=== PATIENT | female | born 1990 | race Caucasian/White ===

== ENCOUNTER 2019-02-09 18:37 | Emergency (ER) | payer BC, MEDICAID ==
[2019-02-09] MEDS ORDERED: Acetaminophen TAB* 325 MG PO ONE (19:58)
--- NOTE | 2019-02-09 20:00 | ED ---
Upper Extremity Pain - HPI Summary HPI Summary: Pt is a 28 y/o F presenting to the ED for a chief complaint of left shoulder pain. On 02/04/19, pt had pain in the left shoulder while trying to sleep on the left side. The shoulder pain worsens when lying on the area and with deep breaths. The shoulder pain previously only occurred while lying on the area, but now is a constant pain. Pt took Tylenol with limited relief for the left shoulder pain. Pt admits CP with breathing and a cough. The CP is at the bottom of the chest, and it now radiates to the back. Pt denies fever or SOB. Pt denies injury to the area. Pt saw a chiropractor on 02/06/19 who the pt sees every Wednesday without relief of symptoms. Pt is currently 28 weeks ; this is her third . Pt denies any complications with previous pregnancies. 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 Pt denies a PMHx of FMHx of blood clots. Pt has a FHMx of HTN, pancreatic cancer, and leukemia. - History of Current Complaint Chief Complaint: EDShoulderClavicleInj Stated Complaint: CHEST PAIN / SHOULDER PAIN PER PT Time Seen by Provider: 02/09/19 19:35 Hx Obtained From: Patient Hx Last Menstrual Period: August 22 Onset/Duration: Started Days Ago, Atraumatic, Still Present Timing: Constant, Lasting Days Severity Initially: Moderate Severity Currently: Moderate Pain Location: Shoulder Aggravating Factor(s): Other - Deep breaths Alleviating Factor(s): OTC Meds - Some relief Associated Signs & Symptoms: Positive: Chest Pain - Lower with breathing, Back Pain - Radiates from chest. Negative: Fever, SOB - Allergies/Home Medications Allergies/Adverse Reactions: Allergies Allergy/AdvReac Type Severity Reaction Status Date / Time No Known Allergies Allergy Verified 02/09/19 18:42 Home Medications: Home Medications Montelukast Sodium TAB* [Singulair TAB*] 10 mg PO DAILY 02/09/19 [History Confirmed 02/09/19] Ranitidine TAB (NF) [Zantac TAB (NF)] 150 mg PO BID 02/09/19 [History Confirmed 02/09/19] PMH/Surg Hx/FS Hx/Imm Hx Previously Healthy: Yes Endocrine/Hematology History: Denies: Hx Diabetes Cardiovascular History: Denies: Hx Hypertension Sensory History: Denies: Hx Legally Blind, Hx Deafness Opthamlomology History: Denies: Hx Legally Blind EENT History: Denies: Hx Deafness - Surgical History Surgical History: Yes Surgery Procedure, Year, and Place: TONSILECTOMY 2012. GALL BLADDER REMOVAL 2010 Infectious Disease History: No Infectious Disease History: Reports: History Other Infectious Disease - mono Denies: Traveled Outside the [place] in Last 30 Days - Family History Known Family History: Negative: Other - Negative blood clots - Social History Alcohol Use: None Hx Substance Use: No Substance Use Type: Reports: None Hx Tobacco Use: No Smoking Status (MU): Never Smoked Tobacco Have You Smoked in the Last Year: No Review of Systems Negative: Fever Positive: Chest Pain - With deep breaths, radiates to back Positive: Cough. Negative: Shortness Of Breath Positive: Arthralgia - Left shoulder, Myalgia - Back pain that radiates from chest All Other Systems Reviewed And Are Negative: Yes Physical Exam - Summary Physical Exam Summary: Constitutional: Well-developed, Well-nourished, Alert. (-) Distressed Skin: Warm, Dry HENT: Normocephalic; Atraumatic Eyes: Conjunctiva normal Neck: Musculoskeletal ROM normal neck. (-) JVD, (-) Stridor, (-) Nuchal rigidity Cardio: Rhythm regular, rate normal, Heart sounds normal; Intact distal pulses; Radial pulses are 2+ and symmetric. (-) Murmur Pulmonary/Chest wall: Effort normal. (-) Respiratory distress, (-) Wheezes, (-) Rales Abd: Soft, (-) tenderness,Gravid uterus, (-) Guarding, (-) Rebound Musculoskeletal: (-) Edema. Pain with abduction of left shoulder, no tenderness of wrist, elbow, or humerus, no midline, C-spine, or thoracic tenderness. Lymph: (-) Cervical adenopathy Neuro: Alert, Oriented x3 Psych: Mood and affect Normal OB: heart tone was 147. Triage Information Reviewed: Yes Vital Signs On Initial Exam: Initial Vitals Temp Pulse Resp BP Pulse Ox 97.3 F 106 16 116/96 100 02/09/19 18:39 02/09/19 18:39 02/09/19 18:39 02/09/19 18:39 02/09/19 18:39 Vital Signs Reviewed: Yes Procedures - Sedation Patient Received Moderate/Deep Sedation with Procedure: No Diagnostics - Vital Signs Vital Signs Temp Pulse Resp BP Pulse Ox 02/09/19 19:37 104 20 123/75 99 02/09/19 19:36 111 96 02/09/19 18:39 97.3 F 106 16 116/96 100 - Laboratory Result Diagrams: 02/09/19 19:56 02/09/19 19:56 Lab Statement: Any lab studies that have been ordered have been reviewed, and results considered in the medical decision making process. - Radiology Chest X-ray Radiology Interpretation Completed By: ED Physician Summary of Radiographic Findings: Chest X-ray IMPRESSION: no acute process. Reviewed and interpreted by ED physician; pending official radiology report. - EKG 18:55 Cardiac Rate: Tachycardia - 104 BPM EKG Rhythm: Sinus Tachycardia ST Segment: Normal Ectopy: None Summary of EKG Findings: EKG at 18:55 reveals 104 BPM with sinus tachycardia, no STEMI, T-wave inversion in lead III. Reviewed and interpreted by ED physician. Re-Evaluation - Re-Evaluation 1st re-eval Re-Evaluation Time: 21:06 Change: Improved Comment: At 21:06, I updated the pt on labs and normal D-dimer. Pt is feeling slightly improved and will plan for discharge. Course/Dx - Course Course Of Treatment: 28 year old female 28 weeks presents with left- sided shoulder and chest wall pain. Chest Pain DDX: The patient is well appearing, with stable vitals. Given the patient's clinical presentation, highest on differential is MSK pain. Although less likely, differential also includes the following: --Pneumothorax: Equal breath sounds, story inconsistent since gradual onset of symptoms. CXR shows no evidence of pneumothorax. Unlikely. --Cardiac tamponade: The history and physical are not concerning for tamponade. No Pulsus Paradoxus, no tachypnea. Unlikely. -- Mediastinitis or esophageal rupture: The history is not consistent, as the patient has had no recent history of significant wretching, instrumentation, or mediastinal surgeries. Unlikely. --Aortic dissection: The patient does not describe the classical tearing chest pain radiating into the back, and the CXR does not show mediastinal widening or other signs of aortic dissection. Unlikely. --PE: Vitals wnl (not hypoxic, tachycardic or tachypneic). Wells low risk, d dimer neg. --ACS: The initial EKG shows no ischemic changes. The initial troponin is not elevated. Labs notable for leukocytosis 16 which can be seen in , patient does not have any infectious symptoms. Patient given IV fluids, Tylenol and lidocaine patch for comfort. Can take Flexeril at home. Patient to return for worsening symptoms. - Diagnoses Provider Diagnoses: Shoulder pain, Chest wall pain Discharge ED - Sign-Out/Discharge Documenting (check all that apply): Patient Departure - Discharge - Discharge Plan Condition: Stable Disposition: HOME Prescriptions: Cyclobenzaprine TAB* [Flexeril 10 MG TAB*] 10 mg PO TID PRN 4 Days #12 tab PRN Reason: Pain - Moderate Patient Education Materials: Shoulder Pain (ED), Chest Wall Pain (ED) Referrals: Julien Mars MD [Primary Care Provider] - Additional Instructions: You were seen in the emergency department for left shoulder and chest wall pain. Your labs did not show a cause for your pain. Your chest x-ray did not show any evidence of infection. Your heart tracing was normal. If any studies were not completed at the time of discharge you will be called with the relevant results. Please follow up with your primary care doctor in next 2-3 days and return to emergency department for worsening pain, trouble breathing., chest pain, fever or concerning symptoms. It was a pleasure taking care of you today. - Billing Disposition and Condition Condition: STABLE Disposition: Home - Attestation Statements Document Initiated by Kathy: Yes Documenting Scribe: Noemi Holloway Provider For Whom Kathy is Documenting (Include Credential): Thalia Cintron MD Scribe Attestation: INoemi, scribed for Thalia Cintron MD on 02/10/19 at 0145. Scribe Documentation Reviewed: Yes Provider Attestation: The documentation as recorded by the Noemi grey accurately reflects the service I personally performed and the decisions made by me, Thalia Cintron MD Status of Scribe Document: Viewed
[2019-02-09 20:12] LABS: ABS Basophils 0.1 10^3/ul (0-0.2); ABS Eosinophils 0.4 10^3/ul (0-0.6); ABS Lymphocytes 2.6 10^3/ul (1.0-4.8); ABS Monocytes 1.1 10^3/ul (0-0.8); Eosinophil % 2.4 %; Hematocrit 39 % (35-47); Lymphocyte % 16.1 %; Mean Corpuscular HGB Conc 33 g/dL (31-36); Mean Corpuscular Hemoglobin 28 pg (27-31); Mean Corpuscular Volume 84 fL (80-97); Mean Platelet Volume 7.5 fL (7.4-10.4); Platelet Count 379 10^3/uL (150-450); Red Blood Count 4.65 10^6 /uL (3.70-4.87); Red Cell Distribution Width 15 % (10-15); White Blood Count 16.1 10^3/uL (3.5-10.8)
[2019-02-09 20:23] LABS: Albumin 3.6 g/dL (3.2-5.2); Albumin/Globulin Ratio 1.2 (1-3); BUN/Creatinine Ratio 16.9 (8-20); Calcium 8.9 mg/dL (8.6-10.3); EGFR African American 130.4 (>60); EGFR Non-African American 107.8 (>60); Globulin 2.9 g/dL (2-4); Potassium 3.8 mmol/L (3.5-5.0); Total Bilirubin 0.3 mg/dL (0.2-1.0); Total Protein 6.5 g/dL (6.4-8.9)
[2019-02-09] MEDS ORDERED: NS 0.9% 1000 ML** 1,000 ML IV ONE (20:25)
[2019-02-09] MEDS ORDERED: Cyclobenzaprine TAB* 10 MG PO ONE (21:17)
[2019-02-09 21:52] VITALS: BP 114/69
[2019-02-10] MEDS ORDERED: Lidocaine Patch REMOVE* 1 NOTE MISC SCH (21:00)
[2019-02-10] MEDS ORDERED: Lidocaine PATCH 5%* 1 PATCH TRANSDERM SCH (22:00)
== END 2019-02-09 21:52 | disposition home or self-care (01) ==
LOC: ED 18:37
DX: M25.512 Pain in left shoulder (principal); R07.89 Other chest pain; R05 Cough; Z87.891 Personal history of nicotine dependence
CPT/HCPCS: 36415; 71046; 80053; 84484; 85025; 85379; 93005; 96360; 99282; A9270-GY

== ENCOUNTER 2019-02-10 08:26 | Emergency (ER) | payer BC, MEDICAID ==
[2019-02-10 10:34] VITALS: BP 116/71
[2019-02-10] MEDS ORDERED: HYDROcodone/ACETAMIN 5-325 MG* 1 TAB PO ONE (10:37)
--- NOTE | 2019-02-10 17:34 | ED ---
Upper Extremity Pain - HPI Summary HPI Summary: This patient is a 28-year-old 28 week female who presents to the ED with left sided scapular pain radiating around into the left breast. She denies any difficulty with breathing, however states when she does take a deep breath, she is endorsing worsening pain to this area. She denies any fevers, sweats, chills. She was seen earlier in the evening and a full workup for chest pain was completed. Dimer negative. Trop negative. CXR read as WNL. Pt was given flexeril and encouraged tylenol. Sxs have been present x 1 week. Sxs worse with palpation to the area and lying over the L shoulder. Better with lying to the R side. Denies SOB, but states sxs are worse with taking a deep breath. Denies CP, but does endorse a radiation of pain from the L scapula to just under the L breast. Denies abd pain. Continues to eat and drink OK. No hx of complications with previous and no hx of DVT/PE. Fam hx includes HTN. 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 Denies any bilateral leg pain or swelling. Non-smoker, no alcohol use Denies sig PMHx. - History of Current Complaint Chief Complaint: EDChestPainROMI Stated Complaint: CHEST PAIN/SHOULDER PAIN PER PT Time Seen by Provider: 02/10/19 08:30 Hx Obtained From: Patient Hx Last Menstrual Period: August 22 Onset/Duration: Started Days Ago Timing: Constant Severity Initially: Moderate Severity Currently: Moderate Pain Location: Shoulder Character: Aching Aggravating Factor(s): Movement, Lifting, Flexion, Extension, Other - deep breaths, movement, lying onto the L side Alleviating Factor(s): Nothing Associated Signs & Symptoms: Negative: Swelling, Redness, Weakness, Numbness/ Tingling Related History: Dominant Hand Right - Risk Factors Non-Orthopedic Risk Factor: Negative DVT Risk Factors: Septic Arthritis Risk Factor: Negative - Allergies/Home Medications Allergies/Adverse Reactions: Allergies Allergy/AdvReac Type Severity Reaction Status Date / Time No Known Allergies Allergy Verified 02/09/19 18:42 Home Medications: Home Medications LoraTADine TAB(NF) [Claritin 10 MG TAB(NF)] 10 mg PO DAILY 02/10/19 [History Confirmed 02/10/19] Vitamin TAB* 1 tab PO DAILY 02/10/19 [History Confirmed 02/10/19] PMH/Surg Hx/FS Hx/Imm Hx Previously Healthy: Yes Endocrine/Hematology History: Denies: Hx Diabetes Cardiovascular History: Denies: Hx Hypertension Sensory History: Denies: Hx Legally Blind, Hx Deafness Opthamlomology History: Denies: Hx Legally Blind - Surgical History Surgery Procedure, Year, and Place: TONSILECTOMY 2011. GALL BLADDER REMOVAL 2010 - Immunization History Date of Influenza Vaccine: 02/09/2019 Hx Pertussis Vaccination: No Immunizations Up to Date: Yes Infectious Disease History: No Infectious Disease History: Reports: History Other Infectious Disease - mono Denies: Traveled Outside the [place] in Last 30 Days - Family History Known Family History: Negative: Other - Negative blood clots - Social History Occupation: Employed Full-time Lives: With Family Alcohol Use: Occasionally Hx Substance Use: No Substance Use Type: Reports: None Hx Tobacco Use: No Smoking Status (MU): Never Smoked Tobacco Have You Smoked in the Last Year: No Review of Systems Negative: Fever, Chills, Fatigue, Skin Diaphoresis Negative: Palpitations, Chest Pain - radiation of pain to just under the L breast from scapular region Negative: Shortness Of Breath, Cough Negative: Abdominal Pain, Vomiting, Diarrhea, Nausea Positive: Arthralgia - left scapular pain with radiation to L lateral chest Skin: Negative Neurological: Negative All Other Systems Reviewed And Are Negative: Yes Physical Exam Triage Information Reviewed: Yes Vital Signs On Initial Exam: Initial Vitals Temp Pulse Resp BP Pulse Ox 98.4 F 104 22 125/70 97 02/10/19 08:30 02/10/19 08:30 02/10/19 08:30 02/10/19 08:30 02/10/19 08:30 Vital Signs Reviewed: Yes Appearance: Positive: Pain Distress - tearful on arrival Skin: Positive: Skin Color Reflects Adequate Perfusion Head/Face: Positive: Normal Head/Face Inspection Eyes: Positive: EOMI, AZALEA, Conjunctiva Clear Neck: Positive: Supple, Nontender, No Lymphadenopathy Respiratory/Lung Sounds: Positive: Clear to Auscultation, Breath Sounds Present Cardiovascular: Positive: Pulses are Symmetrical in both Upper and Lower Extremities, Tachycardia - 105-110. Negative: Leg Edema Left, Leg Edema Right Musculoskeletal: Positive: Strength/ROM Intact Neurological: Positive: Sensory/Motor Intact, Speech Normal Psychiatric: Positive: Normal, Affect/Mood Appropriate Procedures - Sedation Patient Received Moderate/Deep Sedation with Procedure: No Diagnostics - Vital Signs Vital Signs Temp Pulse Resp BP Pulse Ox 02/10/19 10:33 97.9 F 103 16 116/71 98 02/10/19 08:30 98.4 F 104 22 125/70 97 - Laboratory Lab Statement: Any lab studies that have been ordered have been reviewed, and results considered in the medical decision making process. Course/Dx - Course Course Of Treatment: This morning and diagnosed with musculoskeletal pain. She states she took the Flexeril, however this did not relieve her symptoms. She also started a lidocaine patch, which she believes worsened Kip symptoms. In evaluation of her recent records from the visit revealed negative d- dimer, initial troponin of 0.00, other labs WNL. She did have an elevated white count, however this is consistent with . Chest x-ray shows no acute cardiopulmonary findings. EKG was normal sinus rhythm. Wells score is low as she is not tachypneic and she is not hypoxic. She does have tachycardia between 105 and 110, however, this is usually consistent with and pt is tearful. On physical examination, lungs CTA, RRR. There is discrete tenderness just under the left scapula with scapular manipulation rated at 10/ 10 on palpation and a 6/10 at rest. She has no tenderness to the left rib series and patient continues to be able to abduct, adduct at the shoulder joint , however this worsens her scapular pain. She has no chest pain at this time. She will again be dx at this time with MSK pain and encouraged stretching, heat , massage and f/u with OBGYN. I have given a short course of NORCO and discussed with pt in small doses, this is a safe medication in at this time but to only use as directed and only with severe pain not well controlled with tylenol. - Diagnoses Differential Diagnosis/HQI/PQRI: Positive: Other - msk strain, scapular pain, CP Provider Diagnoses: Pain in scapula Discharge ED - Sign-Out/Discharge Documenting (check all that apply): Patient Departure - Discharge Plan Condition: Stable Disposition: HOME Prescriptions: HYDROcodone/ACETAMIN 5-325 MG* [[place] 5-325 TAB*] 1 tab PO Q4H PRN #18 tab MDD 6 PRN Reason: Pain Referrals: Julien Mars MD [Primary Care Provider] - Additional Instructions: You were seen here for shoulder pain As discussed, your labs from last night visit shows no evidence of blood clot You continue to exhibit symptoms despite your tylenol and flexeril You have been given hydrocodone Take this medication only as needed for severe pain not well controlled with other medications Please follow up with OBGYN as soon as possible Moist heat to the area as well as gentle stretches will help Gentle massage to the shoulder/scapular region will help - Billing Disposition and Condition Condition: STABLE Disposition: Home
== END 2019-02-10 10:40 | disposition home or self-care (01) ==
LOC: ED 08:26
DX: M25.512 Pain in left shoulder (principal); Z90.49 Acquired absence of other specified parts of digestive tract; Z79.899 Other long term (current) drug therapy
CPT/HCPCS: 93005; 99282

== ENCOUNTER 2019-03-12 10:15 | Emergency (ER) | payer BC, MEDICAID ==
[2019-03-12 10:21] VITALS: BP 129/76
--- OUTSIDE RECORDS SUMMARY | 2019-03-12 10:21 | XMS REPORT | Summary of Care ---
:1990 Author Organization [facility] Address [address] [place] [address] Care Team Providers Name Role Phone Julien Mars Primary Care Provider Reason for Visit Reason Comments Nasal Congestion w/ chest congestion, cough, runny nose, and trouble sleeping for over a week. pt is and has OB appt this week. Encounter Details Date Type Department Care Team Description 03/06/2019 Office Visit [facility], Ashley, Cold virus (Primary Practice PA-C Dx) [address] [place], [place] [id number] [place] [address] [phone] Allergies Active Allergy Reactions Severity Noted Date Comments Environmental Respiratory Reaction 12/15/2012 Nasal congestion,sneezing documented as of this encounter (statuses as of 03/06/2019) Medications Medication Sig Dispensed Refills Start Date End Date Status albuterol HFA Take 2 Puffs by 1 Inhaler 0 04/23/2016 Active (VENTOLIN) 108 (90 inhalation EVERY BASE) MCG/ACT SIX HOURS Inhalation Aero NEEDED (wheeze). Soln montelukast Take 1 Tab by 30 Tab 5 10/18/2018 Active (SINGULAIR) 10 MG mouth DAILY. Oral Tab ranitidine (ZANTAC) Take 1 Tab by 60 Tab 5 01/17/2019 Active 150 MG Oral Tab mouth TWICE DAILY. Loratadine Take by mouth. 0 Active (CLARITIN) 10 MG Oral Cap Cetirizine HCl Take 1 Tab by 0 03/06/20 Discontinued (ZYRTEC PO) mouth DAILY. 19 Levonorgestrel by Intrauterine 0 05/16/2015 03/06/20 Discontinued (MIRENA, 52 MG,) 20 route. 19 MCG/24HR Intrauterine IUD hydrOXYzine HCL Take 1 Tab by 30 Tab 1 08/13/2017 03/06/20 Discontinued (ATARAX) 25 MG Oral mouth EVERY 19 Tab BEDTIME NEEDED (sleep , anxiety). fluoxetine (PROZAC) Take 2 Caps by 60 Cap 1 02/24/2018 03/06/20 Discontinued 10 MG Oral Cap mouth DAILY. 19 trazodone (DESYREL) Take 1-2 Tabs by 60 Tab 0 02/25/2018 03/06/20 Discontinued 50 MG Oral Tab mouth EVERY 19 BEDTIME. tramadol (ULTRAM) Take 1 Tab by 20 Tab 0 08/12/2018 03/06/20 Discontinued 50 MG Oral Tab mouth EVERY SIX 19 HOURS NEEDED (pain). Max Daily Amount: 200 mg. documented as of this encounter (statuses as of 03/06/2019) Active Problems Problem Noted Date Obesity 12/15/2012 Overview: This patient's BMI This patient's BMI has been calculated and is above average, and BMI management plan is completed. General patient education discussion including: weight loss link to reduction of r isk factors for cardiac and other diseases, importance of long-term maintenance treatment in weight loss, and accomplish with exercise as tolerated and diet control GERD (gastroesophageal reflux disease) 12/15/2012 Depression documented as of this encounter (statuses as of 03/06/2019) Immunizations Name Administration Dates Next Due MMR VACCINE 06/29/2013 documented as of this encounter Social History Tobacco Use Types Packs/Day Years Used Date Never Smoker Smokeless Tobacco: Never Used Alcohol Use Drinks/Week oz/Week Comments Yes drinks rarely socially Sex Assigned at Date Recorded Not on file Job Start Date Occupation Industry Not on file Not on file Not on file Travel History Travel Start Travel End No recent travel history available. documented as of this encounter Last Filed Vital Signs Vital Sign Reading Time Taken Comments Blood Pressure 118/78 03/06/2019 10:07 AM EST Pulse 112 03/06/2019 10:07 AM EST Temperature 36.7 03/06/2019 10:07 AM EST C (98.1 F) Respiratory Rate - - Oxygen Saturation 98% 03/06/2019 10:07 AM EST Inhaled Oxygen Concentration - - Weight 112.5 kg (248 lb) 03/06/2019 10:07 AM EST Height 165.1 cm (5' 5") 03/06/2019 10:07 AM EST Body Mass Index 41.27 03/06/2019 10:07 AM EST documented in this encounter Patient Instructions Patient InstructionsDoAshley bunn PA-C - 03/06/2019 9:40 AM ESTDiscussed with patient, most likely viral cold, no antibiotics needed right now Can continue OTC Mucinex -- Category C Avoid creamy foods and drink Rest, gargle with warm salt water Push water, soup, juice, tea with honey/lemon OTC Tylenol/Ibuprofen for fever/pain Call if not improving or with any questions or concerns F/U with OB Electronically signed by Ashley Saunders PA-C at 2018 10:23 AM EST documented in this encounter Progress Notes Ashley Saunders PA-C - 03/06/2019 9:40 AM EST PATIENT: Lashonda Mattson : 1990 DATE OF SERVICE: 03/06/2019 REFERRING PRACTITIONER: Ashley Saundesr PRIMARY CARE PROVIDER: Julien Mars CHIEF COMPLAINT: Chief Complaint Patient presents with Nasal Congestion w/ chest congestion, cough, runny nose, and trouble sleeping for over a week. pt is and has OB appt this week. Subjective HISTORY OF PRESENT ILLNESS: Lashonda Mattson is a 28-y.o. female who presents with nasal and chest congestion, coughing, runny nose, trouble sleeping IS 32 weeks -- has appointment with OB this week -- Has been taking OTC Mucinex -- some relief Has not been gargling Has not used inhaler Denies fever, chills, nausea, vomiting, diarrhea, chest pains, SOB Past Medical History: Diagnosis Date Anemia Asthma Depression Endometriosis ovarian cyst Environmental allergies nasal congestion GERD (gastroesophageal reflux disease) Thrombocytosis (HCC) Thyroid nodule Past Surgical History: Procedure Laterality Date CHOLECYSTECTOMY 2010 TONSILLECTOMY Family History Problem Relation Age of Onset Respiratory Mother chronic bronchitis from smoking Allergies Sister allergy to amoxicillin Allergies Son allergy to amoxicillin Cancer Maternal Grandmother 64 leukemia Cancer Maternal Grandfather pancreatic CA Cancer Other ovarian CA-MGM's mother Current Outpatient Medications Medication Sig albuterol HFA (VENTOLIN) 108 (90 BASE) MCG/ACT Inhalation Aero Soln Take 2 Puffs by inhalation EVERY SIX HOURS NEEDED (wheeze). Loratadine (CLARITIN) 10 MG Oral Cap Take by mouth. montelukast (SINGULAIR) 10 MG Oral Tab Take 1 Tab by mouth DAILY. ranitidine (ZANTAC) 150 MG Oral Tab Take 1 Tab by mouth TWICE DAILY. No current facility-administered medications for this visit. Allergies Allergen Reactions Environmental Respiratory Reaction Nasal congestion,sneezing Social History Socioeconomic History Marital status: Spouse name: Not on file Number of children: Not on file Years of education: Not on file Highest education level: Not on file Occupational History Not on file Social Needs Financial resource strain: Not on file Food insecurity: Worry: Not on file Inability: Not on file Transportation needs: Medical: Not on file Non-medical: Not on file Tobacco Use Smoking status: Never Smoker Smokeless tobacco: Never Used Substance and Sexual Activity Alcohol use: Yes Comment: drinks rarely socially Drug use: No Sexual activity: Yes Partners: Male control/protection: Condom Lifestyle Physical activity: Days per week: Not on file Minutes per session: Not on file Stress: Not on file Relationships Social connections: Talks on phone: Not on file Gets together: Not on file Attends gnosticist service: Not on file Active member of club or organization: Not on file Attends meetings of clubs or organizations: Not on file Relationship status: Not on file Intimate partner violence: Fear of current or ex partner: Not on file Emotionally abused: Not on file Physically abused: Not on file Forced sexual activity: Not on file Other Topics Concern Not on file Social History Narrative Not on file REVIEW OF SYSTEMS: Skin: negative skin lesions Eyes: negative visual blurring Ears/Nose/Throat: positive rhinorrhea, post nasal drip Respiratory: positive cough, asthma Cardiovascular: negative chest pain Gastrointestinal: negative abdominal pain, constipation, diarrhea, nausea or vomiting Genitourinary: negative burning on urination, dysuria or vaginal discharge Musculoskeletal: negative arthritis/joint pain Neurologic: negative numbness or tingling of feet or hands Psychiatric: negative anxiety Hematologic/Lymphatic/Immunologic: negative allergies Endocrine: negative diabetes or hot flashes/sweats Objective PHYSICAL EXAMINATION: VITALS: BP 118/78 (BP Location: Right arm, Patient Position: Sitting) | Pulse (!) 112 | Temp 98.1F (36.7 C) | Ht 5' 5" (1.651 m) | Wt 248 lb ( 112.5 kg) | SpO2 98% | BMI 41.27 kg/m Body mass index is 41.27 kg/m. General appearance: alert, mild distress, cooperative, oriented times 3 Skin: Skin color, texture, turgor normal. No rashes or lesions. Head: Normocephalic. No masses, lesions, tenderness or abnormalities Eyes: conjunctivae/corneas clear. PERRL, EOM's intact. Ears: positive findings: TMs bulging bilaterally, left more than right Nose/Sinuses: positive findings: mucosa erythematous and swollen no rhinorrhea Oropharynx: positive findings: mild oropharyngeal erythema, post nasal drip present Neck: Neck supple, FROM. No cervical or supraclavicular adenopathy. Lungs: Lungs clear. Chest symmetrical. Normal breath sounds. Heart: RRR. No murmur, clicks or gallops. No peripheral edema . IMPRESSION: ICD-9-CM ICD-10-CM 1. Cold virus 460 J00 Plan PLAN: PATIENT IS 32 WEEKS Discussed with patient, most likely viral cold, no antibiotics needed right now Can continue OTC Mucinex -- Category C Avoid creamy foods and drink Rest, gargle with warm salt water Push water, soup, juice, tea with honey/lemon OTC Tylenol/Ibuprofen for fever/pain Call if not improving or with any questions or concerns F/U with OB Author: Ashley Saunders PA-C 03/06/2019 10:08 documented in this encounter Plan of Treatment Health Maintenance Due Date Last Done Comments PAP SMEAR 09/12/2016 09/12/2013 (Previously completed) DEPRESSION SCREENING 09/17/2018 09/17/2017, 09/17/2017 INFLUENZA VACCINE (#1) 2019 HPV IMMUNIZATION SERIES Aged Out No longer eligible based on patient's age to complete this topic MENINGOCOCCAL VACCINE IMM Aged Out No longer eligible based on patient's age to complete this topic PNEUMOCOCCAL 0-64 YRS Aged Out No longer eligible based on patient's age to complete this topic documented as of this encounter Goals Goal Patient Goal Associated Recent Patient-Stated? Author Type Problems Progress Depression Depression 13 No tr Mars (PHQ-9) (09/17/2017 MD Julien total score < 5 10:47 AM EDT) Note: This is an individualized treatment (depression) goal for Lashonda Osborn: Displayed above is your goal for a depression screening (PHQ-9) score that would indicate good control of your depression. Keep a regular sleep schedule Lifestyle No Julien Mars MD Note: This is an individualized lifestyle goal for Lashonda Osborn: Please maintain a regular sleep schedule. This may help with some symptoms of depression. Take all prescribed medications as directed Self-management No Julien Mars MD Note: This is an individualized self-management goal for Lashonda Osborn: Please take all prescribed medications as directed. 1. Do not skip doses. If you cannot afford your medications, talk with your doctor. 2. Use a pill reminder system such as a pill box if needed. Your pharmacist can help you with this. 3. Contact your Pharmacy 5 days before your medication runs out. If you cannot take your medications for any reasons, talk with your doctor. 4. Please bring all of your medication bottles and inhalers (or a list of all your medications/inhalers) with you to every visit. Potential barriers to meeting all of your care plan goals will continue to be addressed on an ongoing basis. documented as of this encounter Results Not on filedocumented in this encounter Visit Diagnoses Diagnosis Cold virus - Primary Acute nasopharyngitis (common cold) documented in this encounter
--- NOTE | 2019-03-12 10:54 | UC ---
Respiratory Complaint HPI - HPI Summary HPI Summary: patient has been coughing for over a week, gotten worse over past 2 days and now causing diff sleeping. does have seasonal allergies that she treats with claritin and Singulair. She is currently 8 mo and has had care - History of Current Complaint Chief Complaint: UCGeneralIllness Stated Complaint: CHEST COLD Time Seen by Provider: 03/12/19 10:32 Hx Obtained From: Patient Hx Last Menstrual Period: August 22 ?: Yes Onset/Duration: Gradual Onset Timing: Intermittent Episodes Severity Initially: Mild Severity Currently: Moderate Pain Intensity: 5 Character: Cough: Nonproductive Aggravating Factors: Deep Breaths, Recumbent Position Alleviating Factors: Nothing Associated Signs And Symptoms: Positive: URI, Nasal Congestion. Negative: Fever , Chills, Wheezing, Hemoptysis, Sinus Discomfort - Allergies/Home Medications Allergies/Adverse Reactions: Allergies Allergy/AdvReac Type Severity Reaction Status Date / Time No Known Allergies Allergy Verified 03/12/19 10:22 PMH/Surg Hx/FS Hx/Imm Hx Previously Healthy: Yes Respiratory History: Other - seasonal allergies GI/ History: Gastroesophageal Reflux - Surgical History Surgical History: Yes Surgery Procedure, Year, and Place: TONSILECTOMY 2012. GALL BLADDER REMOVAL 2010 - Family History Known Family History: Positive: Non-Contributory Negative: Other - Negative blood clots - Social History Occupation: Employed Full-time Lives: With Family Alcohol Use: Occasionally Substance Use Type: None Smoking Status (MU): Never Smoked Tobacco Have You Smoked in the Last Year: No - Immunization History Most Recent Influenza Vaccination: none Most Recent Tetanus Shot: 03/09/14 Most Recent Pneumonia Vaccination: none Review of Systems All Other Systems Reviewed And Are Negative: Yes Constitutional: Positive: Negative ENT: Positive: Sinus Congestion. Negative: Sore Throat, Ear Ache Respiratory: Positive: Cough. Negative: Shortness Of Breath Cardiovascular: Positive: Negative. Negative: Chest Pain Gastrointestinal: Positive: Negative, Other - positive movement today. Negative: Abdominal Pain Genitourinary: Positive: Negative Neurological: Positive: Negative. Negative: Headache Psychological: Positive: Negative Is Patient Immunocompromised?: No Physical Exam Triage Information Reviewed: Yes Appearance: Well-Appearing, No Pain Distress, Well-Nourished Vital Signs: Initial Vital Signs Temp 98.3 F 03/12/19 10:19 Pulse 109 03/12/19 10:19 Resp 20 03/12/19 10:19 BP 129/76 03/12/19 10:19 Pulse Ox 100 03/12/19 10:19 Vital Signs Reviewed: Yes Eye Exam: Normal Eyes: Positive: Conjunctiva Clear ENT: Positive: Pharynx normal, Nasal congestion, TMs normal Respiratory: Positive: Lungs clear, Other: - dry deep cough with deep inspirations Cardiovascular: Positive: RRR, No Murmur. Negative: Tachycardia Abdomen Description: Positive: Other: - gravid Neurological Exam: Normal Neurological: Positive: Alert Psychological Exam: Normal Psychological: Positive: Normal Response To Family Skin Exam: Normal Skin: Negative: Rashes Respiratory Course/Dx - Differential Dx/Diagnosis Differential Diagnosis/HQI/PQRI: Asthma, Bronchitis, Lower Resp Infection, Pulmonary Embolism, Sinusitis Provider Diagnosis: Bronchitis Discharge ED - Sign-Out/Discharge Documenting (check all that apply): Patient Departure All imaging exams completed and their final reports reviewed: No Studies - Discharge Plan Condition: Good Disposition: HOME Prescriptions: Amoxicillin 500 mg PO BID #20 capsule Patient Education Materials: Acute Bronchitis (ED) Referrals: Julien Mars MD [Primary Care Provider] - 2 Days (if no better) Additional Instructions: Rest, drink plenty of fluids Use cool mist humidifier at bedside and where you sit whenever possible return if your cough worsens or you develop chest pain - Billing Disposition and Condition Condition: GOOD Disposition: Home
== END 2019-03-12 11:09 | disposition home or self-care (01) ==
LOC: UCEAST 10:15
DX: J40 Bronchitis, not specified as acute or chronic (principal); J30.2 Other seasonal allergic rhinitis; R09.81 Nasal congestion
CPT/HCPCS: 99212; G0463

== ENCOUNTER 2019-04-24 14:48 | Inpatient (IN) | payer BC ==
--- NOTE | 2019-04-24 15:30 | HP ---
General Information - Reason for Visit IUP at 39-1/7 with polyhydramnios (TELLY 35 as of 04/19/2019) - General Information Maternal Age: 23 Grav: 3 Para: 2 SAB: 0 IEA: 0 Estimated Due Date: 04/30/19 Determined By: LMP Maternal Blood Type and Rh: A Negative - Results this Serology/RPR Result: Non-Reactive Rubella Result: Immune HBsAg Result: Negative HIV Result: Negative GBS Culture Result: Negative Past Medical History Delivery History: Hx Uncomplicated Vaginal Delivery Delivery History Comment: 07/2010 9lbs 8oz male. Delivered at [facility] [place] [facility] by Zuly Garcia CNM 06/2014 9lbs 3oz female. Delivered at [facility] by Evelyn Diaz CNM Pertinent Past Medical History: See Records Past Medical History Comment: Allergies - seasonal & environmental Depression/Anxiety - no medication mgmt at present Endometriosis Thyroid nodule Pertinent Past Surgical History: See Records Past Surgical History Comment: 01/2011 Laparoscopic cholecystectomy 12/2011 Tonsillectomy with adnoidectomy Pertinent Family History: See Records Family History Comment: Mother: Chronic bronchitis Son 1: ADHD PGF: Heart disease, glaucoma MGM: , leukemia MGF: , pancreatic cancer - Antepartal Records Antepartal Records: Reviewed, Complicated by: - Obesity (BMI 42 on entry to care. TWG 7lbs), Polyhydramnios (TELLY 35), Suspected LGA (EFW 8lbs 7oz at 38-3/7, 86.4 %tile), Rh negative - received RhoGAM per protocol Review of Systems Constitutional: Comfortable CV Complaint: No Respiratory: Shortness of Breath: No Gastrointestinal: No Nausea/Vomiting, Normal Bowel Movement Genitourinary: No Dysuria, No Bleeding, No Leaking Fluid Musculoskeletal: No Complaint, No Epigastric Pain Neurological: No Headache, No Visual Changes Movement: Normal Exam Allergies/Adverse Reactions: Allergies No Known Allergies Allergy (Verified 03/12/19 10:22) BP 130/84 repeat 123/90 HR 101 RR 17 T 97.0 SpO2 99% on RA - Measurements Height: 5 ft 4 in Weight: 253 lb Body Mass Index (BMI): 43.4 Pre- Weight: 245 lb - Exam Breast: Breast Exam Deferred CVA: No CVA Tenderness Extremities: No Edema Heart: Normal Rhythm/Heart Sounds HEENT: No Significant Findings Lungs: Clear Bilaterally Rectal: Rectal Exam Deferred Reflexes: DTR 2+ Thyroid: No Thyromegaly - Abdominal Exam Abdomen Exam: Non-Tender - Ultrasound/Biophysical Profile Ultrasound Status: Not Done Targeted Exam Findings See L&D Outpatient Visit Provider Note for Findings: N/A Estimated Weight: EFW 9lbs Cervical Exam: 1cm Effacement: 50% Station: Ballotable Presenting Part: Vertex Membrane Status: Intact Sterile Speculum Exam: Not done Bleeding/Discharge: None EFM Findings - External Monitor Findings Baseline Heart Rate: 145 External Monitor Findings: Accelerations Present, No Pattern of Variable or Late Decelerations, Variability Moderate, Baseline Stable External Monitor Findings Comment: No evidence of metabolic acidemia Contraction Frequency: Uterine irritability pattern. Pt denies feeling strong UCs Assessment/Plan - Assessment A: IUP at 39-1/7 here for induction of labor for polyhydramnios No evidence of metabolic acidemia Obesity complicating H/O LGA infant x 2 Rh negative, received RhoGAM H/O depression/anxiety - Obstetrical Risk Factors Obstetrical Risk Factors: Obesity - Plan Plan: Induction, Cervical Ripening Plan Comment: P: Pt counseled for induction of labor in presence of polyhydramnios. Discussed pros/cons and risks/benefits of trial of cervical ripening vs. trial of IV pitocin. Pt with strong stated preference to avoid pitocin if at all possible. Feels that it directly led to her need for an epidural with her second delivery and she is hoping to avoid that. PARQ oral misoprostol. Pt and FOB agree. Dr. Alan aware of pt presence and condition. Agrees with plan. Plan MD at bedside for controlled amniotomy when it's time. Anticipate progression into active labor and . - Date/Time of Admission Date of Admission: 04/24/19 Time of Admission: 15:30
[2019-04-24] MEDS ORDERED: Misoprostol TAB* 100 MCG PO ONE ×2 (15:48→21:33)
--- NOTE | 2019-04-24 21:32 | PN ---
Progress Note - Progress Note Date of Service: 04/24/19 Note: S: Pt reports some mild cramping sensation. Denies strong UCs. Describes active FM. No VB or LOF. O: BP 130/84 HR 97 FHT 150bpm. Moderate variability. +Accels. No decels UCs q 5-7 min, mild VE 1+/50%/vtx ballotable +bloody show with exam A: IUP at 39-1/7 here for IOL due to polyhydramnios No evidence of metabolic acidemia P: PARQ repeat dose oral misoprostol. Discussed that if she is a little more favorable would have MD consult re: controlled amniotomy. Pt and FOB agree. Consider Phenergan for sleep PRN. Reviewed at home medications and insured all dosing accurate for routine medications.
[2019-04-24] MEDS: Montelukast Sodium TAB* 10 MG PO SCH (22:09)
[2019-04-24] MEDS: CMCS: LoraTADine TAB(NF) 10 MG TAB (AUTOSUB to CETIRIZINE) PO SCH (22:44)
[2019-04-25 08:46] LABS: Urine Benzodiazepine Screen None Detected (None Detect); Urine Opiates Screen None Detected (None Detect)
[2019-04-25] MEDS ORDERED: Lidocaine 1% MPF ** 5 ML VIAL ONE (08:55)
[2019-04-25] MEDS: FLUoxetine CAP* 20 MG PO SCH (09:03)
[2019-04-25] MEDS ORDERED: Oxytocin in LR* 20 UNITS/1,000 ML BAG IVPB ONE (09:54)
--- NOTE | 2019-04-25 09:56 | PN ---
Progress Note - Progress Note Date of Service: 04/25/19 Note: S: Patient reports she got some sleep. Contractions have slowed this am. O: VE by Dr Russell: 1cm/50%/ballotable FHT 150, +accels, no decels, mod joleen VSS UCs: irritability A: IUP @ 39+2 weeks gestation for induction Polyhydramnios, intact membrane No evidence acidemia P: PARQ discussion low-dose pitocin per MD recommendation. Patient in agreement.
[2019-04-25] MEDS ORDERED: Oxytocin in LR* 20 UNITS/1,000 ML BAG IVPB SCH (10:00)
[2019-04-25 10:02] LABS: ABS Eosinophils 0.1 10^3/ul (0-0.6); ABS Lymphocytes 1.8 10^3/ul (1.0-4.8); ABS Monocytes 0.6 10^3/ul (0-0.8); ABS Neutrophils 9.3 10^3/ul (1.5-7.7); Eosinophil % 1.1 %; Hematocrit 39 % (35-47); Hemoglobin 13.1 g/dL (12.0-16.0); Mean Corpuscular HGB Conc 34 g/dL (31-36); Mean Corpuscular Hemoglobin 28 pg (27-31); Mean Corpuscular Volume 83 fL (80-97); Mean Platelet Volume 8.6 fL (7.4-10.4); Platelet Count 288 10^3/uL (150-450); Red Blood Count 4.69 10^6 /uL (3.70-4.87); Red Cell Distribution Width 16 % (10-15); White Blood Count 11.9 10^3/uL (3.5-10.8)
--- NOTE | 2019-04-25 14:30 | PN ---
Progress Note - Progress Note Date of Service: 04/25/19 Note: Pt with polyhydramnios admitted yesterday for IOL at 39+2 wks, initially given misoprostol yesterday. This AM, cx about 1cm and high so pitocin started. Ctx have been every 3-4 min now, getting stronger. Cx 3cm/70%/ballotable. Using FSE, AROM performed in a very controlled fashion. Copious amount of light mec-stained fluid drained over about 6 min. Head then well engaged. FHT continued to be very reassuring.
--- NOTE | 2019-04-25 16:11 | PN ---
Progress Note - Progress Note Date of Service: 04/25/19 Note: S: Patient not coping well with contractions, desires pitocin break. Tearful in bed. O: Pit was up to 12, lowered twice to 8 VE deferred FHT 155, min to mod joleen, +accels T 97.7, BP 118/88 A: IUP @ 39+2 weeks gestation Polyhydramnios, amniotomy, light mec Doubt acidemia P: Per patient preference, will turn off pitocin and assess for her own contraction pattern. Patient may desire nitrous, would like to try hydrotherapy first.
[2019-04-25] MEDS ORDERED: OBEPIDURAL* 250 ML EPIDURAL ONE (18:07)
[2019-04-25] MEDS ORDERED: Sodium Citrate/Citric Acid* 15 ML UDC PO PRN (20:14)
[2019-04-25] MEDS ORDERED: Phenylephrine 40 MCG/ML SYRINGE IV PUSH PRN (20:14)
[2019-04-25] MEDS ORDERED: Lactated Ringers 1000 ML Bag* 1,000 ML IV ONE (20:14)
[2019-04-25] MEDS ORDERED: Famotidine TAB* 20 MG PO PRN (20:14)
[2019-04-25] MEDS ORDERED: Lactated Ringers 1000 ML Bag* 500 ML IV PRN ×2 (20:14)
[2019-04-25] MEDS ORDERED: EPHEDrine (Pressors)* 50 MG/ML VIAL IV PUSH PRN ×2 (20:14)
[2019-04-25] MEDS ORDERED: Lactated Ringers 1000 ML Bag* 1,000 ML IV SCH (21:00)
[2019-04-25] MEDS ORDERED: OBEPIDURAL* 250 ML EPIDURAL SCH (21:00)
[2019-04-25] MEDS: Phenylephrine 40 MCG/ML SYRINGE IV PUSH PRN ×3 (21:02→21:28)
[2019-04-25] MEDS: Montelukast Sodium TAB* 10 MG PO SCH (23:24)
[2019-04-25] MEDS: CMCS: LoraTADine TAB(NF) 10 MG TAB (AUTOSUB to CETIRIZINE) PO SCH (23:24)
[2019-04-26] MEDS ORDERED: Calcium Carbonate CHEW TAB* 500 MG (TUMS) PO PRN (00:06)
--- NOTE | 2019-04-26 00:21 | PN ---
Progress Note - Progress Note Date of Service: 04/26/19 Note: S: Patient got some rest but has had a visitor as well. Reports feeling more pressure with some contractions. Having some reflux; got Pepcid approx 30 min ago but not getting relief yet. O: VE 9.5+anterior lip/100/+1 FHT 150, min joleen, variable decels, +accels UCs q 2-4 min VSS A: IUP @ 39+3 weeks gestation for induction in active labor Hx LGA babies polyhydramnios Meconium Doubt acidemia P: Labor down. Use peanut ball and encourage position changes. Tums PRN.
[2019-04-26] MEDS ORDERED: Ondansetron INJ* 2 MG/ML VIAL IV ONE (02:00)
[2019-04-26] MEDS ORDERED: Ondansetron INJ* 2 MG/ML VIAL ONE (02:05)
[2019-04-26] MEDS ORDERED: Witch Hazel PAD* JAR TOPICAL PRN (03:14)
[2019-04-26] MEDS ORDERED: Glycerin ADULT SUPP PR PRN (03:14)
[2019-04-26] MEDS ORDERED: Dibucaine 1% 28.35 GM TUBE PR PRN (03:14)
--- NOTE | 2019-04-26 03:42 | PROCNOTE ---
[facility] OB: Delivery Note - Delivery A Date of : 04/26/19 Time of : 02:47 [place] Sex: Male Weight at : 9 lb 9 oz Score 1 Minute: 8 Score 5 Minutes: 8 Gestational Age in Weeks and Days at Delivery: 39 Weeks and 3 Days Delivery Method: Spontaneous Vaginal Labor: Induced Did Patient attempt ?: N/A, No Previous Amniotic Fluid: Meconium Estimated Blood Loss: 150 Anesthesia/Analgesia: CEI for Labor Delivered By: Mildred Ballesteros - Nursery Level of Nursery: NICU - Assessment for low O2 saturation - Perineum Perineal Injury: None/Intact Perineal Repair: None - Events Delivery Events of Note: Pitocin During Labor - Additional Delivery Notes Additional Delivery Notes: Patient admitted for induction of labor due to previous history of LGA babies and polyhydramnios. Misoprostal given without much change. Pitocin initiated with contractions leading to cervical change and controlled amniotomy performed by MD. Pitocin eventually turned off with an active labor pattern continuing. Length of active labor 13' 54". Coached to push for approx 45 min with active pushing phase approx 5 min. Baby born OA to HEBERT @ 0247 with nuchal cord X1, unwrapped after delivery. Shoulders followed smoothly with maternal efforts. Baby to maternal abdomen with spontaneous cry, HR >100, respirations somewhat labored. Cord doubly clamped and cut by FOB Yfn. Baby moved to warmer to be assessed for oxygenation due to color and then to NICU for O2. Placenta delivered with gentle cord traction @ 0254. Fundus firm to massage and bleeding minimal.
[2019-04-26] MEDS: Ibuprofen TAB* 600 MG PO PRN ×3 (03:46→17:59)
[2019-04-26] MEDS ORDERED: Lactated Ringers 1000 ML Bag* 1,000 ML IV SCH (04:00)
[2019-04-26] MEDS: FLUoxetine CAP* 20 MG PO SCH (08:04)
[2019-04-26] MEDS: Docusate CAP* 100 MG PO SCH ×3 (08:05→22:56)
[2019-04-26] MEDS: Acetaminophen TAB* 325 MG PO PRN ×2 (14:33→21:52)
[2019-04-26] MEDS ORDERED: RHO D Immune Globulin (HUMAN)* 300 MCG = 1,500 I.U. INJ IM ONE (18:14)
[2019-04-26] MEDS: CMCS: LoraTADine TAB(NF) 10 MG TAB (AUTOSUB to CETIRIZINE) PO SCH (21:51)
[2019-04-26] MEDS: Montelukast Sodium TAB* 10 MG PO SCH (22:06)
[2019-04-27 00:17] VITALS: BP 128/67
[2019-04-27 02:42] LABS: ABS Basophils 0.1 10^3/ul (0-0.2); ABS Eosinophils 0.3 10^3/ul (0-0.6); ABS Lymphocytes 3.8 10^3/ul (1.0-4.8); ABS Monocytes 1.1 10^3/ul (0-0.8); ABS Neutrophils 9.2 10^3/ul (1.5-7.7); Eosinophil % 1.9 %; Hematocrit 36 % (35-47); Hemoglobin 12.1 g/dL (12.0-16.0); Lymphocyte % 26.2 %; Mean Corpuscular HGB Conc 33 g/dL (31-36); Mean Corpuscular Hemoglobin 28 pg (27-31); Mean Corpuscular Volume 84 fL (80-97); Mean Platelet Volume 7.9 fL (7.4-10.4); Platelet Count 291 10^3/uL (150-450); Red Blood Count 4.33 10^6 /uL (3.70-4.87); Red Cell Distribution Width 16 % (10-15); White Blood Count 14.4 10^3/uL (3.5-10.8)
[2019-04-27] MEDS ORDERED: RHO D Immune Globulin (HUMAN)* 300 MCG = 1,500 I.U. INJ IM ONE (06:00)
[2019-04-27] MEDS ORDERED: Ferrous Gluconate TAB* 324 MG TAB PO SCH (09:00)
== END 2019-04-27 03:00 | disposition home or self-care (01) | DRG 560 ==
LOC: MCHOBOUT 14:48 → MCHOB 14:54
PROVIDERS: ADMIT Midwife; ATTEND Midwife
PROC: 10907ZC Drainage of Amniotic Fluid, Therapeutic from Products of Conception, Via Natural or Artificial Opening (ICD-10-PCS; 2019-04-24)
PROC: 3E033VJ Introduction of Other Hormone into Peripheral Vein, Percutaneous Approach (ICD-10-PCS; 2019-04-24)
PROC: 4A1HXCZ Monitoring of Products of Conception, Cardiac Rate, External Approach (ICD-10-PCS; 2019-04-24)
PROC: 10E0XZZ Delivery of Products of Conception, External Approach (ICD-10-PCS; principal; 2019-04-26)
PROC: 3E0234Z Introduction of Serum, Toxoid and Vaccine into Muscle, Percutaneous Approach (ICD-10-PCS; 2019-04-27)
DX: O40.3XX0 Polyhydramnios, third trimester, not applicable or unspecified (principal); Z37.0 Single live birth; O99.214 Obesity complicating childbirth; O26.893 Other specified pregnancy related conditions, third trimester; O99.62 Diseases of the digestive system complicating childbirth; O69.81X0 Labor and delivery complicated by cord around neck, without compression, not applicable or unspecified; K21.9 Gastro-esophageal reflux disease without esophagitis; O99.52 Diseases of the respiratory system complicating childbirth; J30.2 Other seasonal allergic rhinitis; O77.0 Labor and delivery complicated by meconium in amniotic fluid; O76 Abnormality in fetal heart rate and rhythm complicating labor and delivery; Z3A.39 39 weeks gestation of pregnancy; Z67.11 Type A blood, Rh negative
CPT/HCPCS: 36415; 80307; 85025; 85461; 86850; 86900; 86901; A9270-GY; J2405; J2790; S0191